=== PATIENT | male | born 1965 | race Caucasian/White ===

== ENCOUNTER 2022-01-25 09:18 | Outpatient (CLI) | payer OTHER, SELFPAY ==
--- NOTE | 2022-01-25 09:34 | EKG12_ITS ---
Test Reason : PRE OP Blood Pressure : / mmHG Vent. Rate : 082 BPM Atrial Rate : 082 BPM P-R Int : 196 ms QRS Dur : 092 ms QT Int : 344 ms P-R-T Axes : 021 -10 031 degrees QTc Int : 401 ms Normal sinus rhythm Normal ECG Confirmed by MIKE OSORIO, BIJU ([id number]), slot editor SEBASTIAN ROSENBERG ([id number]) on 01/25/2022 2:22:43 PM Referred By: Gopal Cazares Confirmed By:RIDGE MCKEON MD
[2022-01-25 10:07] LABS: Absolute Lymphocyte Count 1.32 X10^3/uL (0.83-4.51); Absolute Neutrophil Count 5.3 X10^3/uL (2.0-7.7); Basophil# 0.05 X10^3/uL; Basophil% 0.7 % (0-1); Eosinophil# 0.12 X10^3/uL; Eosinophils% 1.6 % (0-5); Hematocrit 39.6 % (40-54); Lymphocyte # 1.32 X10^3/ul (0.83-4.51); Lymphocyte % 17.7 % (19-41); Mean Corp Hgb Conc 32.8 g/dL (32-36); Mean Corpuscular Hgb 28.4 pg (27.0-32.0); Mean Corpuscular Volume 86.7 fL (80-94); Mean Platelet Vol. 8.9 fl (6.2-12.0); Monocyte# 0.62 X10^3/uL; Monocyte% 8.3 % (0-10); NRBC Flagged by Analyzer 0 % (0-5); Neutrophil # 5.33 X10^3/uL (2.7-7.7); Neutrophil % 71.4 % (47-70); Platelet Count 250 K/mm3 (150-450); RBC Distribution Width CV 12.8 % (11.6-14.6); RBC Distribution Width SD 40.5 fl (35.1-43.9); Red Blood Count 4.57 M/mm3 (4.6-6.2); White Blood Count 7.5 K/mm3 (4.4-11.0)
[2022-01-25 11:14] LABS: Albumin, Serum 3.8 g/dL (3.2-5.0); Anion Gap 5 (5-15); BUN 17 mg/dL (7-18); BUN/Creat Ratio 22.6 RATIO (10-20); Chloride 102 mmol/L (98-107); Creatinine, Serum 0.75 mg/dL (0.70-1.30); EST Glomerular Filtration Rate 114 mL/min (>60); Est Glom Filt Rate - Afr Amer 138 mL/min (>60); Glucose 101 mg/dL (74-106); Potassium 4.1 mmol/L (3.5-5.1); Sodium Level 137 mmol/L (136-145)
== END 2022-01-25 23:59 | disposition home or self-care (01) ==
PROVIDERS: PCP Internal Medicine; Referring Provider Physician Assistant Surgical; Visit Provider Physician Assistant Surgical
DX: Z01.810 Encounter for preprocedural cardiovascular examination (principal)
CPT/HCPCS: 36415; 80048; 82040; 85025; 93005

== ENCOUNTER 2022-02-08 15:20 | Outpatient (CLI) | payer OTHER, SELFPAY ==
--- NOTE | 2022-02-08 01:53 | FEM_PTH ---
PATIENT: INESSA SOLORIO LOC: [facility] U#:[id number] AGE/SX: 56/M ROOM: RE02/08/[address]: Dr. Malik Hodges MD : 1965 BED: DIS: 02/08/2022 SPEC #: [id number] RECD: 02/08/22 15:10 STATUS: GILBERTO REJosie #: [id number] ANNE MARIE: 02/08/22 01:[address]: Malik Hodges DEPT: SURGICAL PATHOLOGY RECD BY: Jessenia Boone ENTERED: 02/11/22 08:55 SP TYPE: FEM HEAD OTHR DR: Dr. Dana Viera MD [facility] Tissues: Femoral region, NOS Procedures: Decalcification bone/plaque Surgery Specimen Level IV HEADER OPERATION: Right total hip arthroplasty PRE-OP DIAGNOSIS: Severe right hip osteoarthritis TISSUE SUBMITTED: Bone and soft tissue right hip MICROSCOPIC DIAGNOSIS Bone and soft tissue of right hip, total hip resection: Severe degenerative joint disease. Mild synovial hyperplasia. AM:luz maria 02/14/2022 MICROSCOPIC DESCRIPTION Slides are reviewed. GROSS DESCRIPTION Received is one container labeled with the patient's name and designated bone and soft tissue hip, right. The specimen consists of a mccrary femoral head measuring 5 x 5.5 x 5 cm. The articular surface displays prominent osteophyte formation, eburnation and bone erosion. Also present in the specimen container are multiple irregular fragments of mccrary-yellow soft tissue measuring in aggregate 4 x 3 x 1 cm. Youth Teacher sections are submitted in two cassettes as follows: 1 - soft tissue, 2 - femoral head after decalcification. / LISSY:luz maria 02/11/2022 TC:5 CPT: 20422, 05509
== END 2022-02-08 23:59 | disposition home or self-care (01) ==
LOC: LABSPEC 15:22
PROVIDERS: PCP Internal Medicine; Referring Provider Specialist; Visit Provider Specialist
DX: M16.11 Unilateral primary osteoarthritis, right hip (principal)
CPT/HCPCS: 88305; 88307; 88311